=== PATIENT | female | born 1980 | race Caucasian/White ===

== ENCOUNTER → 2018-10-27 | Outpatient (CLI) | payer MEDICAID ==
[2018-10-27 11:12] LABS: HCT 38.9 % (34.0-46.0); HGB 12.8 gm/dL (11.4-16.0); MCH 31.1 pg (25.0-35.0); MCHC 32.9 g/dL (31.0-37.0); MCV 94.7 fL (80.0-100.0); Mean Platelet Volume 6.8; Platelet Count 261 k/uL (150-450); RBC 4.11 m/uL (3.80-5.40); RDW 12.9 % (11.5-15.5); WBC 8.9 k/uL (3.8-10.6)
[2018-10-27 17:42] LABS: T4, Free (Free Thyroxine) 1.1 ng/dL (0.80-1.80)
== END ==
LOC: LABWHC1 10:30
PROVIDERS: ATTEND Obstetrics & Gynecology
DX: N93.8 Other specified abnormal uterine and vaginal bleeding (principal); Z13.29 Encounter for screening for other suspected endocrine disorder
CPT/HCPCS: 36415; 82670; 83001; 83002; 84146; 84439; 84443; 84479; 85027

== ENCOUNTER → 2018-11-15 | Outpatient (CLI) | payer MEDICAID ==
--- NOTE | 2018-11-15 08:48 | MM ---
Reason for exam: screening (asymptomatic). Baseline mammogram. Physical Findings: Nurse Summary: prominent bilateral nodularity posterior nipples, all soft, movable (nurse ts). MG Screening Mammo w CAD Bilateral CC, MLO, and XCCL view(s) were taken. The breast tissue is heterogeneously dense. This may lower the sensitivity of mammography. No suspicious abnormality. These results were verbally communicated with the patient and result sheet given to the patient on 11/15/18. ASSESSMENT: Negative, BI-RAD 1 RECOMMENDATION: Routine screening mammogram of both breasts in 1 year.
--- NOTE | 2018-11-15 09:27 | US ---
EXAMINATION TYPE: US pelvic complete DATE OF EXAM: 11/15/2018 COMPARISON: NONE CLINICAL HISTORY: N92.0 Menorrhagia w/regular cycle. Cycles increased in days and volume since January 22 18, TECHNIQUE: TA. Transabdominal sonographic images of the pelvis were acquired. offered TV approach but patient never had a TV before and did not want one today Date of LMP: 11/03/2017 EXAM MEASUREMENTS: Uterus: 9.6 x 3.3 x 5.0 cm Endometrial Stripe: 0.6cm, fundal end Right Ovary: 2.0 x 1.7 x 1.6 cm Left Ovary: 2.1 x 1.5 x 0.9 cm 1. Uterus: Anteverted wnl 2. Endometrium: possible 1.5cm polyp seen, vascular stalk seen within fullness noted in endo, fundal portion of endo tappers to 0.6cm 3. Right Ovary: wnl 4. Left Ovary: wnl 5. Bilateral Adnexa: wnl 6. Posterior cul-de-sac: wnl IMPRESSION: Subtle 1.5 cm hypoechoic endometrial polyp with hypervascularity linear stalk. Direct vis ualization is recommended.
== END | disposition home or self-care (01) ==
LOC: RADMAMWWP 07:34
PROVIDERS: ATTEND Obstetrics & Gynecology
DX: Z12.31 Encounter for screening mammogram for malignant neoplasm of breast (principal); N84.0 Polyp of corpus uteri
CPT/HCPCS: 76856; 77067

== ENCOUNTER → 2018-12-27 | Outpatient (CLI) | payer MEDICAID ==
[2018-12-27 16:50] LABS: Basophils % (A) 0 %; Eosinophils # (A) 0.1 k/uL (0-0.7); Eosinophils % (A) 1 %; HCT 36.5 % (34.0-46.0); HGB 12.3 gm/dL (11.4-16.0); Lymphocytes # (A) 2.3 k/uL (1.0-4.8); Lymphocytes % (A) 28 %; MCH 30.7 pg (25.0-35.0); MCHC 33.8 g/dL (31.0-37.0); Monocytes # (A) 0.6 k/uL (0-1.0); Monocytes % (A) 7 %; Neutrophils # (A) 5.3 k/uL (1.3-7.7); Neutrophils % (A) 62 %; Platelet Count 271 k/uL (150-450); RBC 4.01 m/uL (3.80-5.40); RDW 13.3 % (11.5-15.5); WBC 8.5 k/uL (3.8-10.6)
== END | disposition home or self-care (01) ==
LOC: LABPAT 16:12
PROVIDERS: ATTEND Obstetrics & Gynecology
DX: Z01.812 Encounter for preprocedural laboratory examination (principal)
CPT/HCPCS: 36415; 85025

== ENCOUNTER 2018-12-28 07:52 | Day surgery (SDC) | payer MEDICAID ==
[2018-12-27 09:14] VITALS: BMI 20.5
--- NOTE | 2018-12-27 16:54 | P.HPOB ---
History of Present Illness H&P Date: 12/27/18 Chief Complaint: Menorrhagia Delicia is a 38-year-old female who has a complaint of heavy vaginal bleeding. Symptoms are progressing and that been worsening over the last several months. She is bleeding 9 days each cycle and is becoming heavier. This is becoming significantly disruptive to her lifestyle and is making her more irritable. Her did have a vasectomy. She is scheduled for D&C with hysteroscopy NovaSure ablation. Risks and benefits were reviewed with patient in detail all questions were answered for her prior to proceeding to the operative room as were alternatives. Past Medical History Past Medical History: Thyroid Disorder History of Any Multi-Drug Resistant Organisms: None Reported Past Surgical History: No Surgical Hx Reported Past Anesthesia/Blood Transfusion Reactions: No Reported Reaction Past Psychological History: No Psychological Hx Reported Smoking Status: Never smoker Past Alcohol Use History: Occasional Past Drug Use History: None Reported - Past Family History Mother Family Medical History: No Reported History Medications and Allergies Home Medications Medication Instructions Recorded Confirmed Type Levothyroxine Sodium [Synthroid] 50 mcg PO QAM 12/27/18 12/27/18 History Allergies Allergy/AdvReac Type Severity Reaction Status Date / Time bacitracin Allergy Rash/Hives Verified 12/27/18 09:16 [From Neosporin ([id number])] neomycin Allergy Rash/Hives Verified 12/27/18 09:16 [From Neosporin ([id number])] polymyxin B Allergy Rash/Hives Verified 12/27/18 09:16 [From Neosporin ([id number])] Exam Osteopathic Statement: *. No significant issues noted on an osteopathic st ructural exam other than those noted in the History and Physical/Consult. Intake and Output 12/27/18 12/27/18 12/27/18 06:59 14:59 22:59 Other: Weight 61.235 kg - OBG Physical Exam Breast: both: normal (no masses) Abdomen: bowel sounds normal, no diffuse tenderness, no bruit present, no gu arding noted, no hepatomegaly, no splenomegaly, no mass Vulva: both: normal Vagina: normal moisture, no discharge Cervix: no lesion, no discharge Uterus: normal size, normal contour Adnexa: both: normal Anus/Rectum: normal perianal skin, no rectal mass, no hemorrhoids, heme negative
[~2018-12-28 07:52] MED LIST: DEXAMETHASONE SOD PHOSPHATE 10 MG/ML 1 ML VIAL IV ONE; HYDROmorphone 0.5 MG/0.5 ML SYRINGE IVP PRN; LACTATED RINGERS 1,000 ML IV SCH; LIDOCAINE 1% 20 ML VIAL (10MG/ML) FOR IV START INTRADERMA PRN; MIDAZOLAM (PF) 2 MG/2 ML VIAL IV PRN; ONDANSETRON 4 MG/2 ML VIAL IVP ONE; Pre Op ABX Message 1 EACH MISC MISCELLANE ONE; SCOPOLAMINE 1.5MG/72HR PATCH TRANSDERM ONE
[2018-12-28] MEDS ORDERED: KETOROLAC 30 MG/ML 1 ML VIAL ONE (08:41)
[2018-12-28] MEDS ORDERED: MIDAZOLAM 2 MG/2 ML VIAL ONE (08:41)
[2018-12-28] MEDS ORDERED: fentaNYL (PF) 50 MCG/ML 2 ML AMP ONE (08:41)
[2018-12-28] MEDS ORDERED: PROPOFOL 10 MG/ML 20 ML VIAL IV ONE (08:41)
[2018-12-28] MEDS ORDERED: LIDOCAINE 1% INJ 10MG/ML (20 ML MDV) ONE (08:41)
[2018-12-28 09:16] VITALS: TEMP 97
--- NOTE | 2018-12-28 09:20 | P.OP ---
Date of Procedure: 12/28/18 Preoperative Diagnosis: Menorrhagia and polyps Postoperative Diagnosis: Same Procedure(s) Performed: D&C with hysteroscopy polypectomy and NovaSure Anesthesia: FORTUNATO Surgeon: Reynaldo Telles Estimated Blood Loss (ml): 10 Pathology: other (Uterine curettings) Condition: stable Disposition: same day Operative Findings: Proliferative endometrium with suspected polyp noted polyps removed Description of Procedure: Patient was taken to the operating suite where a general anesthetic was found be adequate. She was prepped and draped in normal sterile fashion placed in dorsal lithotomy position. Initially a weighted speculum was inserted into the vagina and the anterior lip of cervix identified and grasped with a Allis clamp. Cervix was then sounded to 9 cm and was then dilated. Camera was then inserted polyps were noted and therefore polyp forceps was used to remove suspected polyps and then sharp curettings of endometrium were obtained. All tissues collected and placed on Telfa and sent to pathology for evaluation. Once this was accomplished NovaSure systems inserted with a length of 5 and a width of 3 it was tested once it passes patency test it was enabled and burned. The burn lasted 89 seconds. At the conclusion of the burn camera was reinserted and excellent tissue burn was noted. All instruments were then removed. Sponge, lap, needle counts were all correct 2. Patient was then taken to the recovery room in stable and satisfactory condition. Plan - Discharge Summary Discharge Rx Participant: No New Discharge Prescriptions: New Ibuprofen [Motrin] 600 mg PO Q6HR PRN #30 tab PRN Reason: Pain No Action Levothyroxine Sodium [Synthroid] 50 mcg PO QAM Discharge Medication List Levothyroxine Sodium [Synthroid] 50 mcg PO QAM 12/27/18 [History] Ibuprofen [Motrin] 600 mg PO Q6HR PRN #30 tab 12/28/18 [Rx] Follow up Appointment(s)/Referral(s): Reynaldo Telles DO [Doctor of Osteopathic Medicine] - 2 Weeks Activity/Diet/Wound Care/Special Instructions: No heavy lifting, limit stairs and driving, and pelvic rest. If any high temperatures, heavy bleeding, or severe pain call my office Discharge Disposition: HOME SELF-CARE
[2018-12-28 09:54] VITALS: RESP 18
[2018-12-28 10:39] VITALS: BP 113/76; PULSE 69
== END 2018-12-28 11:45 | disposition home or self-care (01) ==
LOC: OR 07:52
PROVIDERS: ATTEND Obstetrics & Gynecology
DX: N92.0 Excessive and frequent menstruation with regular cycle (principal); E07.9 Disorder of thyroid, unspecified; Z79.890 Hormone replacement therapy; Z88.1 Allergy status to other antibiotic agents
CPT/HCPCS: 81025; 88305; 58563; J2250; J1100; J2405; J2001; J3010; J1885; J2704

== ENCOUNTER → 2021-11-20 | Outpatient (CLI) | payer BC ==
--- NOTE | 2021-11-24 13:53 | MM ---
Reason for exam: screening (asymptomatic). Last mammogram was performed 3 years ago. Physical Findings: A clinical breast exam by your physician is recommended on an annual basis and results should be correlated with mammographic findings. MG Screening Mammo w CAD Bilateral CC and MLO view(s) were taken. Prior study comparison: November 15, 2018, bilateral MG screening mammo w CAD. There are scattered fibroglandular densities. No significant changes when compared with prior studies. ASSESSMENT: Negative, BI-RAD 1 RECOMMENDATION: Routine screening mammogram of both breasts in 1 year.
== END | disposition home or self-care (01) ==
LOC: RADMAMWWP 16:30
PROVIDERS: ATTEND Family Medicine
DX: Z12.31 Encounter for screening mammogram for malignant neoplasm of breast (principal)
CPT/HCPCS: 77067

== ENCOUNTER → 2023-11-30 | Outpatient (CLI) | payer BC ==
--- NOTE | 2023-12-04 14:38 | MM ---
Reason for Exam: Screening (asymptomatic). Last mammogram was performed 2 year(s) and 0 month(s) ago. Patient History: Menarche at age 13. First Full-Term at age 26. Patient has history of breast feeding. Risk Values: Renetta 5 year model risk: 0.8%. NCI Lifetime model risk: 9.7%. Prior Study Comparison: 11/15/2018 Bilateral Screening Mammogram, [facility]. 11/20/2021 Bilateral Screening Mammogram, [facility]. Tissue Density: The breasts are heterogeneously dense, which may obscure small masses. Findings: Analyzed By CAD. The pattern is symmetrical. Pattern appears stable. No suspicious groups of microcalcifications, spiculated or lobular masses, architectural distortion or other secondary signs of malignancy are mammographically apparent. Overall Assessment: Benign, BI-RAD 2 Management: Screening Mammogram of both breasts in 1 year. A negative mammogram report should not preclude additional follow up of suspicious palpable abnormalities. Patient should continue monthly self breast exam. A clinical breast exam by your physician is recommended on an annual basis and results should be correlated with mammographic findings. Electronically signed and approved by: Hiram Wade D.O. Radiologis
== END | disposition home or self-care (01) ==
LOC: RADMAMWWP 09:59
PROVIDERS: ATTEND Family Medicine
DX: Z12.31 Encounter for screening mammogram for malignant neoplasm of breast (principal)
CPT/HCPCS: 77063; 77067

== ENCOUNTER → 2024-11-03 | Outpatient (CLI) | payer BC | END | disposition home or self-care (01) | LOC: LABWHC1 09:33 | PROVIDERS: ATTEND Student in an Organized Health Care Education/Training Program | DX: E06.9 Thyroiditis, unspecified (principal) | CPT/HCPCS: 36415; 86376 ==

== ENCOUNTER → 2024-12-21 | Outpatient (CLI) | payer BC ==
--- NOTE | 2024-12-21 09:54 | MM ---
Reason for Exam: Screening (asymptomatic). Last mammogram was performed 1 year(s) and 1 month(s) ago. Patient History: Menarche at age 13. First Full-Term at age 26. Perimenopausal. Patient has history of breast feeding. Risk Values: Renetta 5 year model risk: 0.9%. NCI Lifetime model risk: 9.6%. Prior Study Comparison: 11/15/2018 Bilateral Screening Mammogram, [facility]. 11/20/2021 Bilateral Screening Mammogram, [facility]. 11/30/2023 Bilateral MG 3D screening mammo w/cad, [facility]. Tissue Density: The breasts are heterogeneously dense, which may obscure small masses. Findings: Analyzed By CAD. There is no suspicious group of microcalcifications or new suspicious mass in either breast. Overall Assessment: Benign, BI-RAD 2 Management: Screening Mammogram of both breasts in 1 year. . Patient should continue monthly self-breast exams. A clinical breast exam by your physician is recommended on an annual basis. This exam should not preclude additional follow-up of suspicious palpable abnormalities. Note on Renetta scores and lifetime risk: 1. A Renetta score greater than 3% is considered moderate risk. If this is the case, consider specialist referral to assess eligibility for a risk reducing agent. 2. If overall lifetime risk for the development of breast cancer is 20% or higher, the patient may qualify for future screening with alternating mammogram and breast MRI. [facility], , 12/21/2024 9:51 AM. Electronically signed and approved by: Delonte Lucero M.D. Radiologis
== END | disposition home or self-care (01) ==
LOC: RADMAMWWP 09:24
PROVIDERS: ATTEND Family Medicine
DX: Z12.31 Encounter for screening mammogram for malignant neoplasm of breast (principal); R92.333 Mammographic heterogeneous density, bilateral breasts
CPT/HCPCS: 77067